=== PATIENT | male | born 1995 | race Caucasian/White ===

== ENCOUNTER 2017-05-31 20:17 | Emergency (ER) | payer OTHER ==
[~2017-05-31] VITALS: Ht 172.7 cm; Wt 74.3 kg
[2017-05-31 20:22] VITALS: BP 130/72; TEMP 36.6; Ht 172.7 cm; Wt 74.3 kg
[2017-05-31] MEDS ORDERED: DESV50TA PO (21:01)
--- NOTE | 2017-05-31 21:05 | EMERGENCY ROOM VISIT NOTE ---
History First contact with patient: 20:26 Chief Complaint: OTHER COMPLAINT Stated Complaint: DROPPED BOX OF MERCURY BULBS, INHALED VAPOR History of Present Illness The patient is a 22 year old male who presents to the Emergency Room with complaints of "dropped a box of mercury bulbs, inhaled vapor". The patient states that earlier today around 2 PM he was in a lab at the [facility], carrying a box of wall fluorescent light bulbs. He states that unfortunately the box fell/E drop him in 2 or 3 of them broke. He states that as he was cleaning him up, he may have inhaled dust/fumes admitted by the breaking of light bulbs. He then began to feel dizzy/lightheaded. He states that this has since dissipated, and denies any changes in vision. He denies any fever. There is been no smoking. He denies any skin problems. He states that he googled effects of mercury, and is concerned that he may been exposed to higher levels. Review of Systems A complete 6-point Review of Systems was discussed with the patient, with pertinent positives and negatives listed in the History of Present Illness. All remaining Review of Systems questions can be considered negative unless otherwise specified. Past Medical/Surgical History No pertinent. Family History No pertinent. Social History Smoking Status: Never Smoker Patient is a [employer] student and lives locally. Current/Historical Medications Scheduled Desvenlafaxine Succinate Er (Pristiq), 50 MG PO 1030 Physical Exam Vital Signs Date Time Temp Pulse Resp B/P (MAP) Pulse Ox O2 Delivery O2 Flow Rate FiO2 05/31/17 21:27 60 18 99 Room Air 05/31/17 20:22 36.6 61 18 130/72 99 Room Air Physical Exam VITAL SIGNS - Vital signs and nursing notes were reviewed. Stable. GENERAL - 22-year-old male appearing his stated age who is in no acute distress. Communicates well with provider and answers questions appropriately. SKIN - Without rashes. No petechial rashes. HEAD - NC/AT. EYES - PERRL with EOMI bilaterally. Sclera anicteric. EARS - No deformities of external structures noted on gross examination bilaterally. NOSE - Midline and without cyanosis. No epistaxis or purulent drainage noted. MOUTH/OROPHARYNX - Without perioral cyanosis. NECK - Neck with FROM. Supple to palpation. LUNGS - Chest wall symmetric without accessory muscle use, intercostals retractions, or central cyanosis. Normal vesicular breath sounds CTA B/L. No wheezes, rales, or rhonchi appreciated. CARDIAC - RRR with S1/S2. No murmur, rubs, or gallops appreciated. EXTREMITIES - No clubbing or peripheral cyanosis. No pretibial edema present. + 5/5 strength noted in UE/LE bilaterally. NEUROLOGIC - Cranial nerves II through XII grossly intact. Sensory intact to light touch throughout. Medical Decision & Procedures Medical Decision Patient presents to us today status post exposure to fumes emitted from that of a broken light bulb. I did elect to consult poison control despite the patient exhibiting no symptoms upon his arrival. He has searched on the Internet about possible exposure. The Poison Control Center was consult just prior to 9 PM, and expressed that there at this time is no concern as he is experiencing no symptoms, and believe that the mercury level he was exposed to is very minimal. According to poison control, It is insignificant in regard to exposure. At this time he'll be discharged. He was educated upon management, educated upon worrisome symptoms which to return, had questions and provided discharge, and was discharged home in good condition. In evaluation treatment this patient following differential diagnoses were entertained: Exposure to mercury, ARDS, inhalation of foreign substance, among others. Impression Primary Impression: Exposure to light bulb contents Departure Information Dispostion Home / Self-Care Condition GOOD Referrals No Doctor, Assigned (PCP) Patient Instructions My [facility] Additional Instructions You were seen in the emergency department for exposure to broken light bulb. Poison Control Center at this time recommends no testing or intervention. I believe that the mercury levels you were exposed to are lower than that to be considered concerning. I do recommend certainty returning for any new/concerning symptoms. As with any trip to the Emergency Department, you should follow-up with your Primary Care Provider from today's visit.
[2017-05-31 21:27] VITALS: PULSE 60; O2SAT 99
== END 2017-05-31 21:28 | disposition home or self-care (01) ==
LOC: C.EDB 20:20 → C.EDD 21:28
DX: Z77.29 Contact with and (suspected) exposure to other hazardous substances (principal)

== ENCOUNTER 2017-11-06 11:54 | Emergency (ER) | payer OTHER ==
[~2017-11-06] VITALS: Ht 170.2 cm; Wt 75.6 kg
[~2017-11-06 11:54] MED LIST: DESV50TA PO
[2017-11-06 11:59] VITALS: TEMP 36.4; Ht 170.2 cm; Wt 75.6 kg
[2017-11-06] MEDS ORDERED: MULT-600 PO (12:24)
[2017-11-06] MEDS ORDERED: CYNI1000 IM (12:24)
[2017-11-06] MEDS ORDERED: [UNRECOGNIZED DRUG - CODE] PO (12:24)
--- NOTE | 2017-11-06 12:37 | EMERGENCY ROOM VISIT NOTE ---
ED Visit Note First contact with patient: 12:15 CHIEF COMPLAINT: Head injury HISTORY OF PRESENT ILLNESS: This 22-year-old male patient presented to the emergency department approximately 26 hours after receiving a head injury. The patient was working out in the weight room, and when putting away his weight, he did not realize a 10 pound weight was on the edge of the rack. He bent over , and the weight fell approximately 2 feet, striking him on the top of the head , more to the left side. There was no loss of consciousness. There has been no vomiting. The patient complains of mild tenderness to palpation, and intermittent dizziness, worse with standing. He states occasionally, he gets light sensitivity, however overall he has been feeling well. He did have difficulty sleeping last night, and is concerned this could be related to the head injury. The patient denies generalized headache, visual disturbances, and balance changes, weakness, numbness or tingling, constant dizziness, amnesia, or other concerning neurological symptoms. The patient has not experienced a headache since the injury. The patient complains of no neck pain. The patient has taken nothing for the pain. The patient rates the pain as 2/10 and sharp on palpation. The patient denies bowel or bladder dysfunction. The patient denies any other injuries. REVIEW OF SYSTEMS: A 10 system review of systems was performed with positives and pertinent negatives listed in the history of present illness. All other systems were reviewed and are negative. ALLERGIES: None MEDICATIONS: Vitamin B12, multivitamin PMH: Lyme disease SOCIAL HISTORY: The patient is a [employer] student. He denies drug, alcohol, tobacco use. PHYSICAL EXAM: Vital Signs: Reviewed Nurse's notes, vital signs stable. GENERAL : This is a 22-year-old white male, in no acute distress, well-developed, well- nourished. NEURO: The patient is alert, oriented to person place and time, and coherent. Normal mini mental status exam. Negative Romberg and pronator drift. Cerebellar function intact. HEAD: Normocephalic. There is some mild tenderness over the left parietal region, however no significant hematoma or swelling noted. No obvious open trauma. EYES: Pupils are equal round and reactive to light and accommodation. EOMs are full and optic discs and fundi are normal. There is no swelling or discoloration of the tissue surrounding the eyes. EARS: External auditory canals clear without blood. NOSE: Patent without tenderness. No septal hematoma. FACE: No facial bone tenderness. NECK: Supple. There is no cervical spine tenderness. The patient does not have tenderness with movement of the neck. ED COURSE: I examined the patient. He presents today 26 hours status post head injury when a 10 pound weight fell on his head. The patient has very few symptoms at this time, and states he overall feels well. He states he feels slightly "off", and has some dizziness associated with position changes and mild difficulty concentrating. The patient denies any visual disturbances, headaches, or balance changes. He does not have any focal neurological symptoms or signs on my examination. I had a long discussion with the patient regarding options for CT scanning versus not. Utilizing shared decision-making , the patient decided against CT scan at this time, and I am in agreement with this decision given the patient's diffuse symptoms and length of time since injury. The patient does not have any significant past medical history of severe head injuries. The patient was given strict home care instructions, was encouraged to follow-up with [facility]. Discharge instructions reviewed, and all questions were answered to the patient's satisfaction. The patient was discharged home in good condition ambulatory. I attest that I have personally reviewed the patient's current medication list. Patient was found to have normal blood pressure on screening and does not require follow-up. Differential diagnosis includes closed head injury, concussion, intracranial hemorrhage, skull fracture, contusion, malignancy, and others DIAGNOSIS: Closed head injury The chart was completed utilizing [employer] Speech voice recognition software. Grammatical errors, random word insertions, pronoun errors, and incomplete sentences are an occasional consequence of this system due to software limitations, ambient noise, and hardware issues. Any formal questions or concerns about the content, text, or information contained within the body of this dictation should be directly addressed to the provider for clarification. Current/Historical Medications Scheduled Dietary Management Product (Vsl#3), 1 EA PO BID Multiple Vitamins W/ Minerals (Mens Multi Vitamin & Mine), 1 TAB PO DAILY Miscellaneous Medications Cyanocobalamin (Cyanocobalamin), 1,000 MCG IM Allergies Coded Allergies: No Known Allergies (Unverified , 11/06/17) Vital Signs Date Time Temp Pulse Resp B/P (MAP) Pulse Ox O2 Delivery O2 Flow Rate FiO2 11/06/17 12:53 59 12 107/58 100 11/06/17 11:59 36.4 62 20 113/63 99 Room Air Departure Information Impression Primary Impression: Closed head injury Dispostion Home / Self-Care Condition GOOD Referrals No Doctor, Assigned (PCP) [facility] Patient Instructions ED [facility] Closed, [facility] Additional Instructions You have been treated in the Emergency Department for a Closed Head Injury. As discussed, at this time, I do not feel that CT scanning as necessary. We were in agreement that due to the length of time since the injury and minimal symptoms that outpatient follow-up is appropriate. For pain control, you can use the following [id number] medicines (if >12 yo): Ibuprofen(Motrin, Advil) may be used for fever or pain. Use 600mg every six hours as needed. Take with food. Avoid using more than 2400mg in a 24 hour period. Do not use 2400mg per day for more than three consecutive days without physician direction. Prolonged inappropriate use can lead to stomach upset or ulcers. (AND/OR) Acetaminophen(Tylenol) may be used for fever or pain. Use 1000mg every six hours as needed. Avoid using more than 3000mg in a 24 hour period. You should relax in a quiet, dark place for the rest of the day. Avoid any possible triggers including: cigarette smoke, caffeine, nicotine, chocolate, wine, beer, blue light, excessive computer, sulfa, or television screens, loud noises or music, or bright lights. You should schedule a follow-up appointment in 2-3 days with your Primary Care Provider ([facility]) for further evaluation and treatment of your head injury. He should avoid athletic play or exercise until your symptoms are improved. This timeframe should be AT LEAST 1 week AFTER the date of last symptoms experienced! This is ESSENTIAL to allow for adequate brain healing time and for reduced risk of re-injury. Return to the Emergency Department if your current symptoms worsen despite treatment course outlined above, or if you develop any of the following symptoms : intractable pain despite aforementioned treatment course, visual disturbances , loss of vision, unilateral weakness or facial drooping, slurring of speech, loss of coordination, or loss of consciousness. Problem Qualifiers Primary Impression: Closed head injury Encounter type: initial encounter Qualified Codes: S09.90XA - Unspecified injury of head, initial encounter
[2017-11-06 12:53] VITALS: BP 107/58; PULSE 59; O2SAT 100
== END 2017-11-06 12:54 | disposition home or self-care (01) ==
LOC: C.EDB 11:56 → C.EDD 12:54
DX: S09.90XA Unspecified injury of head, initial encounter (principal); W20.8XXA Other cause of strike by thrown, projected or falling object, initial encounter